=== PATIENT | female | born 1985 | race Caucasian/White ===

== ENCOUNTER → 2021-07-10 09:41 | Outpatient (CLI) | payer OTHER, SELFPAY ==
--- NOTE | ~2021-07-10 | MMUS_ITS ---
EXAMINATION: MM diag raudel implant BI w yani, US breast BI complete HISTORY: Recent left implant rupture. TECHNIQUE: Additional 3-D tomosynthesis images of the breasts were performed and synthetic 2-D images were generated. CAD analysis was submitted and interpreted. High resolution bilateral complete breas t ultrasound was performed. COMPARISON: No prior studies for comparison. BREAST PARENCHYMAL COMPOSITION: The breasts are heterogenously dense, which may obscure small masses. FINDINGS: MAMMOGRAPHIC FINDINGS: Left breast implant is collapsed. There is focal asymmetry in the outer aspect of the right breast, l ikely normal asymmetric fibroglandular content, although no discrete mass is identified. No suspiciou s architectural distortion or cluster of calcifications. ULTRASOUND: Complete bilateral US of all 4 quadrants of the breasts and retroareolar region was reviewed. There a re tiny bilateral cysts in both breasts including a 4 mm cyst in the right breast at 10-11:00, 3 cm f rom the nipple and a 2 mm cyst in the left breast at 9:00, 3 cm from the nipple. No suspicious masses to suggest malignancy. IMPRESSION: 1. No evidence for malignancy in either breast. Benign findings. 2. Routine yearly screening mammogram and regular clinical breast examination are recommended. BI-RADS Category 2: Benign finding(s). Reviewed, dictated and finalized at location A. [employer] IMPRESSION: 1. No evidence for malignancy in either breast. Benign findings. 2. Routine yearly screening mammogram and regular clinical breast examination a re recommended. BI-RADS Category 2: Benign finding(s).
== END ==
PROVIDERS: PCP Family Medicine
DX: R92.8 Other abnormal and inconclusive findings on diagnostic imaging of breast (principal); T85.49XA Other mechanical complication of breast prosthesis and implant, initial encounter
CPT/HCPCS: 76641; 77062; 77066; G0279